=== PATIENT | female | born 1970 | race Asian ===

== ENCOUNTER 2016-09-13 11:51 | Outpatient (CLI) | payer OTHER | END 2016-09-13 11:52 | disposition home or self-care (01) | DX: Z12.31 Encounter for screening mammogram for malignant neoplasm of breast (principal) ==

== ENCOUNTER 2016-09-28 08:24 | Outpatient (CLI) | payer OTHER | END 2016-09-28 08:25 | disposition home or self-care (01) | DX: E05.90 Thyrotoxicosis, unspecified without thyrotoxic crisis or storm (principal) ==

== ENCOUNTER 2019-07-02 07:44 | Emergency (ER) | payer BC, OTHER ==
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
[2019-07-02 11:04] VITALS: BP 117/77
== END 2019-07-02 11:14 | disposition home or self-care (01) ==
LOC: ED 07:44
DX: S06.0X1A Concussion with loss of consciousness of 30 minutes or less, initial encounter (principal); S16.1XXA Strain of muscle, fascia and tendon at neck level, initial encounter; S00.83XA Contusion of other part of head, initial encounter; S50.02XA Contusion of left elbow, initial encounter; S00.81XA Abrasion of other part of head, initial encounter; S50.312A Abrasion of left elbow, initial encounter; V18.0XXA Pedal cycle driver injured in noncollision transport accident in nontraffic accident, initial encounter; Y93.55 Activity, bike riding; E04.1 Nontoxic single thyroid nodule; M50.322 Other cervical disc degeneration at C5-C6 level; M40.202 Unspecified kyphosis, cervical region
CPT/HCPCS: 70450; 70486; 72125; 99284

== ENCOUNTER 2019-08-09 17:19 | Outpatient (CLI) | payer BC, OTHER ==
--- NOTE | 2019-08-11 15:32 | XRAY Report ---
Reason: LOW BACK PAIN Procedure Date: 08/09/2019 Accession Number: [id number] / [id number] Procedure: XR - Lumbar Spine Complete CPT Code: Final Report FULL RESULT: EXAM: LUMBOSACRAL SPINE RADIOGRAPHY EXAM DATE: 08/09/2019 05:39 PM. CLINICAL HISTORY: Low back pain following a hard cough 3 days ago. COMPARISONS: None. TECHNIQUE: 5 views including obliques. FINDINGS: Alignment: Minimal dextroscoliosis. No spondylolisthesis. Bones: Five [id number]-cte-gpckcia lumbar vertebral bodies are present. No fractures or bone lesions. No pars defects. Disks: Normal. Disk heights are maintained. Facets: No degenerative changes. Sacroiliac Joints: Unremarkable. Soft Tissues: Normal. The visualized bowel gas pattern is normal. IMPRESSION: Minimal dextroscoliosis, otherwise unremarkable lumbar spine radiography. RADIA
== END 2019-08-09 17:20 | disposition home or self-care (01) ==
LOC: DI 17:19
PROVIDERS: ATTEND Physician Assistant
DX: M41.9 Scoliosis, unspecified (principal)
CPT/HCPCS: 72110

== ENCOUNTER 2019-09-27 08:00 | Outpatient (CLI) | payer BC, OTHER ==
[2019-09-27 12:16] LABS: BASOPHILS % (AUTO) 0.4 %; EOSINOPHILS # (AUTO) 0.1 10^3/uL (0.0-0.7); EOSINOPHILS % (AUTO) 2.5 %; HGB - HEMOGLOBIN 12.8 g/dL (12.0-16.0); LYMPHOCYTES # (AUTO) 1.9 10^3/uL (1.5-3.5); LYMPHOCYTES % (AUTO) 38.9 %; MEAN CORPUSCULAR HEMOGLOBIN 29.2 pg (27.0-31.0); MEAN CORPUSCULAR HGB CONC 31.4 g/dL (32.0-36.0); MEAN CORPUSCULAR VOLUME 93.2 fL (81.0-99.0); MEAN PLATELET VOLUME 8.7 fL (7.9-10.8); MONOCYTES # (AUTO) 0.3 10^3/uL (0.0-1.0); MONOCYTES % (AUTO) 5.5 %; NEUTROPHILS # (AUTO) 2.6 10^3/uL (1.5-6.6); NEUTROPHILS % (AUTO) 52.5 %; PLT - PLATELET COUNT 263 10^3/uL (130-450); RED BLOOD COUNT 4.38 10^6/uL (4.20-5.40); RED CELL DISTRIBUTION WIDTH 13.2 % (12.0-15.0); WHITE BLOOD COUNT 4.9 x10^3/uL (4.8-10.8)
[2019-09-27 12:36] LABS: ALBUMIN/GLOBULIN RATIO 1.1 (1.0-2.2); ALKALINE PHOSPHATASE 50 IU/L (42-121); ALT ALANINE AMINOTRANSFERASE 14 IU/L (10-60); AST ASPARTATE AMINOTRANSFERASE 20 IU/L (10-42); BILIRUBIN,TOTAL 0.5 mg/dL (0.2-1.0); BUN - BLOOD UREA NITROGEN 17 mg/dL (6-20); CARBON DIOXIDE - CO2 25 mmol/L (21-32); CHLORIDE 107 mmol/L (101-111); CHOL/HDL RATIO 2.8 (<4.4); CHOLESTEROL 156 mg/dL; CREATININE 0.8 mg/dL (0.4-1.0); GFR - MDRD 76 (>89); GLUCOSE 94 mg/dL (70-100); HDL CHOLESTEROL 56 mg/dL; LDL CHOLESTEROL,CALCULATED 89 mg/dL; LDL/HDL RATIO 1.6 (<4.4); SODIUM 139 mmol/L (135-145); TOTAL PROTEIN 7.5 g/dL (6.7-8.2); VLDL CHOLESTEROL 11 mg/dL
== END 2019-09-27 23:59 | disposition home or self-care (01) ==
LOC: LAB.WCP 08:00
PROVIDERS: ATTEND Physician Assistant Medical
DX: Z00.00 Encounter for general adult medical examination without abnormal findings (principal)
CPT/HCPCS: 36415; 80053; 80061; 83721; 84443; 85025; 86735; 86762; 86765

== ENCOUNTER 2020-03-05 09:11 | Day surgery (SDC) | payer OTHER ==
[2020-03-05] MEDS ORDERED: MIDAZOLAM 2 MG/2 ML VIAL IVP ONE (09:12)
[2020-03-05] MEDS ORDERED: fentaNYL 250 MCG/5 ML VIAL IVP ONE (09:12)
[2020-03-05] MEDS ORDERED: LACTATED RINGERS 1,000 ML IV ONE (09:45)
[2020-03-05] MEDS ORDERED: LACTATED RINGERS 500 ML IV ONE (11:47)
[2020-03-05 13:14] VITALS: BP 100/59
== END 2020-03-05 09:12 | disposition home or self-care (01) ==
LOC: SDS 09:11
PROVIDERS: ATTEND Surgery
DX: Z12.11 Encounter for screening for malignant neoplasm of colon (principal); K64.4 Residual hemorrhoidal skin tags; K64.8 Other hemorrhoids
CPT/HCPCS: 45378; J3010; J7120

== ENCOUNTER 2021-02-25 11:13 | Outpatient (CLI) | payer OTHER ==
[2021-02-25 17:56] LABS: BASOPHILS % (AUTO) 0.5 %; EOSINOPHILS # (AUTO) 0.1 10^3/uL (0.0-0.7); EOSINOPHILS % (AUTO) 1.7 %; HCT - HEMATOCRIT 43.6 % (37.0-47.0); HGB - HEMOGLOBIN 13.7 g/dL (12.0-16.0); LYMPHOCYTES # (AUTO) 2.2 10^3/uL (1.5-3.5); MEAN CORPUSCULAR HEMOGLOBIN 29.3 pg (27.0-31.0); MEAN CORPUSCULAR HGB CONC 31.4 g/dL (32.0-36.0); MEAN CORPUSCULAR VOLUME 93.2 fL (81.0-99.0); MEAN PLATELET VOLUME 8.8 fL (7.9-10.8); MONOCYTES # (AUTO) 0.3 10^3/uL (0.0-1.0); MONOCYTES % (AUTO) 5.2 %; NEUTROPHILS # (AUTO) 3.1 10^3/uL (1.5-6.6); NEUTROPHILS % (AUTO) 54.4 %; PLT - PLATELET COUNT 290 10^3/uL (130-450); RED BLOOD COUNT 4.68 10^6/uL (4.20-5.40); RED CELL DISTRIBUTION WIDTH 13.4 % (12.0-15.0); WHITE BLOOD COUNT 5.7 x10^3/uL (4.8-10.8)
[2021-02-25 18:30] LABS: ALBUMIN 4.4 g/dL (3.2-5.5); ALBUMIN/GLOBULIN RATIO 1.2 (1.0-2.2); ALKALINE PHOSPHATASE 69 IU/L (42-121); ALT ALANINE AMINOTRANSFERASE 17 IU/L (10-60); AST ASPARTATE AMINOTRANSFERASE 21 IU/L (10-42); BILIRUBIN,TOTAL 0.5 mg/dL (0.2-1.0); BUN - BLOOD UREA NITROGEN 17 mg/dL (6-20); CALCIUM 9.5 mg/dL (8.5-10.3); CARBON DIOXIDE - CO2 28 mmol/L (21-32); CHLORIDE 99 mmol/L (101-111); CHOLESTEROL 190 mg/dL; CREATININE 0.8 mg/dL (0.4-1.0); GFR - MDRD 75 (>89); GLUCOSE 87 mg/dL (70-100); HDL CHOLESTEROL 64 mg/dL; LDL CHOLESTEROL,CALCULATED 104 mg/dL; LDL/HDL RATIO 1.6 (<4.4); POTASSIUM 3.8 mmol/L (3.5-5.0); SODIUM 136 mmol/L (135-145); TRIGLYCERIDES 111 mg/dL; VLDL CHOLESTEROL 22 mg/dL
[2021-02-25 18:33] LABS: THYROID STIMULATING HORMONE 2.23 uIU/mL (0.34-5.60)
== END 2021-02-25 23:59 | disposition home or self-care (01) ==
LOC: LAB.WCP 11:13
PROVIDERS: ATTEND Physician Assistant Medical
DX: Z00.00 Encounter for general adult medical examination without abnormal findings (principal)
CPT/HCPCS: 36415; 80053; 80061; 83721; 84443; 85025

== ENCOUNTER 2021-07-15 15:26 | Outpatient (CLI) | payer OTHER ==
--- NOTE | 2021-07-16 08:26 | Mammography Report ---
BILATERAL DIGITAL SCREENING MAMMOGRAM 3D/2D: 07/15/2021 CLINICAL: Routine screening. Comparison is made to exams dated: 09/13/2016 mammogram, 01/24/2014 mammogram, and 12/26/2012 mammogram - [facility]. There are scattered fibroglandular elements in both breasts. No significant masses, calcifications, or other findings are seen in either breast. There has been no significant interval change. IMPRESSION: NEGATIVE There is no mammographic evidence of malignancy. A 1 year screening mammogram is recommended. This exam was interpreted at Station ID: [id number]. NOTE: For mammograms, a report in lay terms will be sent to the patient. Approximately 15% of breast malignancies will not be visualized mammographically. In the management of a palpable breast mass, a negative mammogram must not discourage biopsy of a clinically suspicious lesion. Electronically Signed By: Ras Palmer M.D., jr/farida:07/15/2021 16:12:57 ACR BI-RADS Category 1: Negative 3341F PARENCHYMAL PATTERN: (A) - The breast(s) demonstrate(s) scattered fibroglandular densities. BI-RADS CATEGORY: (1) - 1 RECOMMENDATION: (ANNUAL) - Recommend routine annual screening mammography. [id number] 1 year screening LATERALITY: (B)
== END 2021-07-15 15:27 | disposition home or self-care (01) ==
LOC: DI.N 15:26
DX: Z12.31 Encounter for screening mammogram for malignant neoplasm of breast (principal)

== ENCOUNTER 2023-03-03 13:16 | Outpatient (CLI) | payer OTHER ==
--- NOTE | 2023-03-03 16:41 | Ultrasound Report ---
PROCEDURE: Pelvic w/Transvaginal INDICATIONS: SUPRPUBIC ABD PAIN TECHNIQUE: Real-time scanning was performed of the pelvic organs, with image documentation. Additional endovagi nal scanning was necessary due to incomplete visualization of the adnexal and endometrial structures by transabdominal scanning. COMPARISON: None. FINDINGS: Uterus: Uterus is anteverted and normal in size at 6.3 x 3.4 x 4.1 cm. The myometrium is heterogene ous The endometrium measures 4 mm in combined thickness. No focal uterine mass Ovaries: The right ovary measures 1.2 x 0.5 x 0.6 cm, with a calculated ovarian volume of 0.2 cc. T he left ovary measures 2.1 x 1.3 x 1.4 cm, with a calculated ovarian volume of 1.7 cc. The ovaries h ave a normal sonographic appearance. Less than 12 follicles can be seen in each ovary. There is a hy poechoic focus within the left ovary measuring 12 mm. Prominent left adnexal venous vessels are seen. No cystic lesions measuring greater than 3 cm. Other: No pathologic free abdominal or pelvic fluid. IMPRESSION: 1. No acute process. 2. Findings which would be consistent with pelvic congestion syndrome in the appropriate clinical set ting. 3. Indeterminate hypoechoic focus within the left ovary. This could be further assessed with follow-u p ultrasound examination in 6 weeks, if clinically indicated. Reviewed by: Mely Juarez MD on 03/03/2023 4:39 PM PDT Approved by: Mely Juarez MD on 03/03/2023 4:39 PM PDT Station ID: [id number]
== END 2023-03-03 13:17 | disposition home or self-care (01) ==
LOC: DI 13:16
PROVIDERS: ATTEND Physician Assistant Medical
DX: R10.30 Lower abdominal pain, unspecified (principal)

== ENCOUNTER 2023-04-27 18:28 | Outpatient (CLI) | payer OTHER ==
--- NOTE | 2023-04-28 22:36 | Ultrasound Report ---
PROCEDURE: Pelvic w/Transvaginal INDICATIONS: OVARIAN CYST TECHNIQUE: Real-time scanning was performed of the pelvic organs, with image documentation. Additional endovagi nal scanning was necessary due to incomplete visualization of the adnexal and endometrial structures by transabdominal scanning. COMPARISON: 03/03/2023 FINDINGS: Uterus: Uterus is retroverted and normal in size at 5.6 x 3.3 x 4.7 cm. The myometrium is homogeneo us. The endometrium measures 7 mm in combined thickness. Ovaries: The right ovary measures 1.8 x 0.5 x 1.6 cm, with a calculated ovarian volume of 1.0 cc. T he left ovary measures 1.7 x 0.7 x 0.6 cm, with a calculated ovarian volume of 0.4 cc. The ovaries h ave a normal sonographic appearance. Less than 12 follicles can be seen in each ovary. No adnexal m asses are seen. No cystic lesions measuring greater than 3 cm. Previously described indeterminate hyp oechoic focus in the left ovary is not visualized on today's study. Other: No pathologic free abdominal or pelvic fluid. IMPRESSION: Pelvic ultrasound without acute sonographic abnormalities. No suspicious mass or cyst identified. Spe cifically, previously described indeterminate hypoechoic focus in the left ovary is not seen on today 's study. Reviewed by: Arnol Reed MD on 04/28/2023 10:35 PM PDT Approved by: Arnol Reed MD on 04/28/2023 10:35 PM PDT Station ID: [id number]
== END 2023-04-27 18:29 | disposition home or self-care (01) ==
LOC: DI 18:28
PROVIDERS: ATTEND Physician Assistant Medical
DX: N83.292 Other ovarian cyst, left side (principal)

== ENCOUNTER 2024-05-15 12:53 | Outpatient (CLI) | payer OTHER ==
--- NOTE | 2024-05-16 14:34 | Mammography Report ---
BILATERAL DIGITAL SCREENING MAMMOGRAM 3D/2D: 05/15/2024 CLINICAL: Routine screening. Comparison is made to exams dated: 07/15/2021 mammogram, 09/13/2016 mammogram, 01/24/2014 mammogram, a nd 12/26/2012 mammogram - [facility]. The breasts are heterogeneously dense, which may obscure small masses (category c / 51-75% glandular tissue). No significant masses, calcifications, or other findings are seen in either breast. There has been no significant interval change. IMPRESSION: NEGATIVE There is no mammographic evidence of malignancy. A 1 year screening mammogram is recommended. Based on the Tyrer Cuzick model (a risk assessment model) the patient's lifetime risk is 12.8% and he r 10 year risk is 4.2%. According to the ACR, ACS, and NCCN guidelines, an annual breast MRI exam kaylee ng with mammogram is recommended if the patient's lifetime risk is 20% or greater. This exam was interpreted at Station ID: [id number]. NOTE: For mammograms, a report in lay terms will be sent to the patient. Approximately 15% of breast malignancies will not be visualized mammographically. In the management of a palpable breast mass, a negative mammogram must not discourage biopsy of a clinically suspicious lesion. Electronically Signed By: Evelia Velasquez M.D., Ph.D. eb/penrad:05/15/2024 14:25:29 ACR BI-RADS Category 1: Negative 3341F PARENCHYMAL PATTERN: (D) - The breast(s) demonstrate(s) heterogeneously dense fibroglandular alee olmedo. BI-RADS CATEGORY: (1) - 1 RECOMMENDATION: (ANNUAL) - Recommend routine annual screening mammography. [id number] 1 year screening LATERALITY: (B)
== END 2024-05-15 12:54 | disposition home or self-care (01) ==
LOC: DI.N 12:53
DX: Z12.31 Encounter for screening mammogram for malignant neoplasm of breast (principal)